=== PATIENT | male | born 1995 | race Caucasian/White ===

== ENCOUNTER 2018-11-01 21:19 | Emergency (ER) | payer OTHER ==
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
[2018-11-01] MEDS ORDERED: Tetan/Diph/Pertus SYR(Tdap)* 0.5 ML SYR(BOOSTRIX) use SYR IM ONE (21:49)
[2018-11-01 21:58] VITALS: BP 125/52
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
== END 2018-11-01 22:28 | disposition home or self-care (01) ==
LOC: UCCORT 21:19
DX: S60.512A Abrasion of left hand, initial encounter (principal); S60.511A Abrasion of right hand, initial encounter; S50.819A Abrasion of unspecified forearm, initial encounter; S40.219A Abrasion of unspecified shoulder, initial encounter; S80.02XA Contusion of left knee, initial encounter; V29.3XXA Motorcycle rider (driver) (passenger) injured in unspecified nontraffic accident, initial encounter; Y92.9 Unspecified place or not applicable
CPT/HCPCS: 90715; 99204; G0463